=== PATIENT | female | born 1960 | race Caucasian/White ===

== ENCOUNTER 2019-11-02 15:44 | Emergency (ER) | payer OTHER, SELFPAY ==
--- NOTE | ~2019-11-02 | XR_ITS ---
EXAMINATION: XR chest 2V DATE: 11/02/2019 16:13 INDICATION: Chest pain TECHNIQUE: PA and lateral views of the chest are obtained. COMPARISON: 09/20/2007 FINDINGS: The lungs are free of acute opacities. There is no pleural effusion or pneumothorax. The ca rdiomediastinal silhouette is normal. There is moderate thoracic spondylosis. IMPRESSION: 1. No acute cardiopulmonary abnormality. Reviewed, dictated and finalized at location A.
[2019-11-02 15:48] VITALS: BP 169/67; PULSE 94; RESP 18; TEMP 36.3; O2SAT 99
[2019-11-02 15:52] VITALS: PULSE 92; O2SAT 98
--- NOTE | 2019-11-02 15:53 | ED.CHESTPAIN ---
HPI - Chest Pain General Chief Complaint: Chest Pain Stated Complaint: epigastric pain/back pain Time Seen by Provider: 11/02/19 15:51 Source: patient and RN notes reviewed Mode of arrival: ambulatory Limitations: no limitations History of Present Illness HPI narrative: Pt is a 59 y/o female presenting to the ED c/o CP. Pt reports she started experiencing epigastric CP radiating to back and rt sided chest after eating food yesterday afternoon. Pt states the pain is worsened with breathing and notes the pain becomes sharp with each breath. Pt also reports poor appetite, cough for 2 months that has recently alleviated, increased belching, ABD bloating, and chronic BLE swelling, but denies SOB. Pt states her pain was not worsened after eating breakfast and lunch earlier today. Pt states she is currently taking hydrochlorothiazide due to mild HTN, but denies any other pulmonary or cardiovascular Hx's. Pt states she took Motrin x4 and her husbands Omeprazole to no relief on her Sx's. Pertinent past history: other (HTN) Onset (ago): day(s) (1) Pain location: epigastric Pain radiation: back and other (Rt chest) Exacerbating factors: other (Breathing) Associated symptoms: leg swelling (Chronic BLE) and other (Poor appetite; cough; increased belching; ABD bloating) Related Data Home Medications Medication Instructions Recorded Confirmed hydrochlorothiazide 11/02/19 Allergies Allergy/AdvReac Type Severity Reaction Status Date / Time No Known Allergies Allergy Mild Verified 11/02/19 15:55 Review of Systems Review of Systems: All systems reviewed & are unremarkable except as noted in HPI and below Constitutional: Constitutional: Reports poor appetite Cardiovascular: Cardiovascular: Reports pedal edema (Chronic) Respiratory: Respiratory: Reports cough and Denies dyspnea Gastrointestinal: Gastrointestinal: Reports abdominal pain (Epigastric radiating to back and rt chest), Reports bloating and Reports other (Increased belching) PMFSH Past Medical History Medical History Arthritis GERD (gastroesophageal reflux disease) Hiatal hernia HTN (hypertension) IBS (irritable bowel syndrome) Mitral valve prolapse Seasonal allergies Surgical History Surgical History H/O dilation and curettage H/O tubal ligation History of History of cholecystectomy History of endometrial ablation History of tonsillectomy Social History Social History Smoking status: Unknown if ever smoked Gender identity (if verbalized by the patient): Female Exam Const: General: healthy appearing, no acute distress and alert Nutritional Appearance: well nourished HENMT: Mouth: Yes lip normal Eyes: Conjunctivae: conjunctivae normal Resp: Effort & Inspection: normal respiratory effort Auscultation: clear to auscultation bilaterally Cardio: Rate: regular rate Rhythm: regular rhythm GI: Inspection: non-distended GI Palp: Yes Soft to palpation and No Tenderness to palpation present (GI) Back/Spine/Pelvis: Other: Full ROM Skin: General skin exam: normal color Other: Warm; Dry Neuro: General: patient oriented x3 Speech: normal speech Extrem: General: full ROM and no pedal edema Psych: Mental Status: mental status grossly normal Affect: normal affect Course Vital Signs Vital signs: Vital Signs Temperature 36.3 C L 11/02/19 15:48 Pulse Rate 94 11/02/19 15:48 Respiratory Rate 18 11/02/19 15:48 Blood Pressure 169/67 H 11/02/19 15:48 Pulse Oximetry 99 11/02/19 15:48 Temperature 36.3 C L 11/02/19 15:48 Pulse Rate 87 11/02/19 17:40 Respiratory Rate 16 11/02/19 17:40 Blood Pressure 145/60 H 11/02/19 17:40 Pulse Oximetry 99 11/02/19 17:40 MDM - Chest Pain MDM Narrative Medical decision making narrative: Pain is atypical. Improved with GI cocktail. Troponin negativ
--- NOTE | 2019-11-02 15:54 | ECG_ITS ---
Measurements Intervals [place] Rate: 87 P: 43 [place]: 150 QRS: 33 QRSD: 94 T: 48 QT: 381 QTc: 460 Interpretive Statements SINUS RHYTHM LOW QRS VOLTAGE IN PRECORDIAL LEADS INCOMPLETE RIGHT BUNDLE BRANCH BLOCK BORDERLINE T WAVE ABNORMALITY- ANTERIOR LEADS BORDERLINE ECG Electronically Signed On 11-02-2019 20:07:21 CDT by Tad Fiore D.O.
[2019-11-02] MEDS: BELLADONNA ALK/PHENOB ELIX 10 ML, MAG HYDROX/ALUMINUM HYD/SIMETH 30 ML, LIDOCAINE HCL 2... PO (16:29)
[2019-11-02] MEDS: PANTOPRAZOLE SODIUM IV 40 MG VIAL IV PUSH (16:29)
[2019-11-02 16:37] LABS: Basophils Absolute Auto 0.1 K/mm3 (0.0-0.1); Basophils Percent Auto 0.4 % (0.2-1.2); Eosinophils Absolute Auto 0.2 K/mm3 (0-0.3); Hematocrit 44.8 % (37.0-47.0); Immature Granulocyte Absolute 0.09 K/mm3 (0.00-0.031); Immature Granulocyte Percent A 0.6 % (0-0.5); Lymphocytes Absolute Auto 2.95 K/mm3 (0.9-3.2); Lymphocytes Percent Auto 18.6 % (18.3-44.2); Mean Corpuscular HGB Conc 33.5 g/dl (32-36); Mean Corpuscular Hemoglobin 29.6 pg (26-34); Mean Corpuscular Volume 88.5 fl (80-100); Mean Platelet Volume 10.3 fl (7.4-10.4); Monocytes Percent Auto 6.1 % (2.6-8.5); Neutrophils Absolute Auto 11.7 K/mm3 (1.3-6.7); Neutrophils Percent Auto 73.3 % (45.5-73.1); Platelet Count Result 229 k/mm3 (150-375); Red Blood Count 5.06 M/mm3 (4.2-5.4); Red Cell Distribution Width 13.6 % (11.5-14.5); White Blood Count 15.9 K/mm3 (4.5-10.0)
[2019-11-02 16:56] LABS: Alanine Aminotransferase 29 U/L (4-35); Albumin Level 4.4 g/dL (3.5-5.1); Alkaline Phosphatase 91 U/L (38-126); Aspartate Amino Transferase 26 U/L (14-36); Bilirubin,Total 0.2 mg/dL (0.2-1.3); Blood Urea Nitrogen 13 mg/dL (7-17); Carbon Dioxide 30 mmol/L (22-30); Chloride 102 mmol/L (98-107); Estimated Glomerular Filt Rate > 60; Glucose 106 mg/dL (65-105); Potassium 3.7 mmol/L (3.4-5.0); Sodium 136 mmol/L (137-145)
[2019-11-02 17:08] LABS: Troponin I < 0.012 ng/mL (0.000-0.034)
[2019-11-02 17:40] VITALS: BP 145/60; PULSE 87; RESP 16; O2SAT 99
== END 2019-11-02 17:41 | disposition home or self-care (01) ==
PROVIDERS: Emergency Provider Emergency Medicine; PCP Internal Medicine
DX: R07.89 Other chest pain (principal); M19.90 Unspecified osteoarthritis, unspecified site; K21.9 Gastro-esophageal reflux disease without esophagitis; I10 Essential (primary) hypertension; K58.9 Irritable bowel syndrome, unspecified; I34.1 Nonrheumatic mitral (valve) prolapse
CPT/HCPCS: 36415; 71046; 80053; 84484; 85025; 93005; 96374; 99284; A9270; C9113

== ENCOUNTER 2020-08-18 19:51 | Inpatient (IN) | payer OTHER, SELFPAY ==
[2020-08-18] VITALS (13 sets, daily range): BP systolic 126–152; BP diastolic 52–70; PULSE 96–103; RESP 20–31; TEMP 36.9; O2SAT 89–96
--- NOTE | ~2020-08-18 | CT_ITS ---
EXAMINATION: CTA chest PE protocol EXAM DATE: 08/18/2020 22:22 INDICATION: Shortness of breath, elev d dimer. TECHNIQUE: Spiral CTA of the chest (pulmonary arteries) was performed with 100 cc Omnipaque 350 intr avenous contrast injection. Images were acquired during the pulmonary arterial phase. Coronal maxi mum intensity projection 3D-reconstructions were created by the technologist on dedicated workstation . Axial, coronal and sagittal reformatted images were reviewed. The dose-length product (DLP) for t his examination was 604.28 mGy-cm. The exposure was tailored according to patient size (auto mA exp osure control), and iterative reconstruction (ASIR) was used as additional dose reduction technique. 2008 FINDINGS: Pulmonary arteries are well opacified and without intraluminal filling defects. No thora cic aortic dissection. Patchy bilateral predominantly linear airspace disease, could be combination of infection and atelectasis. Subacute stage COVID pneumonia can have this appearance. There are no pleural or pericardial effusions. Tracheobronchial tree is patent. There is no mediastinal, brenda r or axillary lymphadenopathy. There is no pneumothorax. Heart normal in size. No evidence of c oronary arterial calcification. Upper abdomen is unremarkable. There is thoracic spondylosis witho ut osteoblastic or osteolytic lesions identified. IMPRESSION: Moderate amount of basilar airspace disease, appearance suggests subacute stage COVID pne umonia. No pulmonary emboli. Reviewed, dictated and finalized at location A. OGRAPH OPERATOR IMPRESSION: Moderate amount of basilar airspace disease, appearance suggests davis bacute stage COVID pneumonia. No pulmonary emboli.
--- NOTE | ~2020-08-18 | XR_ITS ---
EXAMINATION: XR chest 1V portable EXAM DATE: 08/18/2020 20:45 INDICATION: COVID 19 positive, shortness of breath, diarrhea, cough, fever and weakness. TECHNIQUE: Portable AP frontal chest x-ray was obtained. Comparison is made to prior examination from 11/02/2019. FINDINGS: Suspect small amount of ill-defined bilateral groundglass airspace disease. Could be develo ping infectious process. No pleural effusion or pneumothorax. Cardiomediastinal silhouette is normal. There are bony degenerative changes. IMPRESSION: Possible developing acute bilateral airspace disease. Reviewed, dictated and finalized at location A. O TIME SALESPERSON
--- NOTE | ~2020-08-18 | XR_ITS ---
XR chest 1V portable 08/21/2020 06:01 Indication: CovidPneumonia Procedure: AP portable chest Comparison: Comparison to multiple prior studies sequentially, with oldest reviewed study dated 05/14. Findings: Developing patchy bilateral airspace disease, compatible with pneumonia. Small left pleural effusion. No pneumothorax. Heart size normal for technique. No acute osseous abnormality. Impression: 1: Developing patchy bilateral airspace disease, compatible with pneumonia. Reviewed, dictated and finalized at location A. AID Impression: 1: Developing patchy bilateral airspace disease, compatible with pneumonia.
--- NOTE | 2020-08-18 20:18 | ED.FEVER ---
HPI - Fever General Chief Complaint: Fever <Edilberto Manzano MD - Last Filed: 08/18/20 23:04> Stated Complaint: COVID+08/12 FEVER,COUGH,SOB <Edilberto Manzano MD - Last Filed: 08/18/20 23:04> Time Seen by Provider: 08/18/20 20:06 <Edilberto Manzano MD - Last Filed: 08/18/20 23:04> Source: patient <Edilberto Manzano MD - Last Filed: 08/18/20 23:04> Mode of arrival: ambulatory <Edilberto Manzano MD - Last Filed: 08/18/20 23:04> Limitations: no limitations <Edilberto Manzano MD - Last Filed: 08/18/20 23:04> History of Present Illness HPI Narrative: Patient is a 58-year-old female complaining of shortness of breath, fever, body aches and diarrhea that started approximately 9 days ago. Patient states that she tested positive for Covid 1 week ago. Patient states that she continues to have the above symptoms. Patient denies any headache, chest pain, abdominal pain, nausea or vomiting. <Edilberto Manzano MD - Last Filed: 08/18/20 23:04> Related Data Home Medications: Home Medications Medication Instructions Recorded Confirmed hydrochlorothiazide 11/02/19 <Edilberto Manzano MD - Last Filed: 08/18/20 23:04> Allergies/Adverse Reactions: Allergies Allergy/AdvReac Type Severity Reaction Status Date / Time No Known Allergies Allergy Mild Verified 11/02/19 15:55 <Edilberto Manzano MD - Last Filed: 08/18/20 23:04> Review of Systems Review of Systems: All systems reviewed & are unremarkable except as noted in HPI and below <Edilberto Manzano MD - Last Filed: 08/18/20 23:04> Constitutional: Constitutional: Denies excessive sweating, Denies fatigue, Denies headache(s), Denies lethargy and Denies weight loss <Edilberto Manzano MD - Last Filed: 08/18/20 23:04> Eyes: Eyes: Denies blurry vision, Denies change in vision and Denies loss of vision <Edilberto Manzano MD - Last Filed: 08/18/20 23:04> ENT: Denies dizziness, Denies ear discharge, Denies headache(s), Denies lip swelling, Denies epistaxis, Denies nasal congestion, Denies neck pain, Denies throat swelling and Denies tongue swelling <Edilberto aMnzano MD - Last Filed: 08/18/20 23:04> Cardiovascular: Cardiovascular: Denies chest pain, Denies chest pain at rest, Denies chest pain with activity, Denies diaphoresis, Denies rapid heart rate, Denies edema, Denies irregular heart rhythm, Denies lightheadedness and Denies palpitations <Edilberto Manzano MD - Last Filed: 08/18/20 23:04> Respiratory: Respiratory: Denies chest congestion, Denies cough and Denies hemoptysis <Edilberto Manzano MD - Last Filed: 08/18/20 23:04> Gastrointestinal: Gastrointestinal: Denies abdominal pain, Denies melena, Denies hematochezia, Denies nausea, Denies vomiting and Denies hematemesis <Edilberto Manzano MD - Last Filed: 08/18/20 23:04> Musculoskeletal: Musculoskeletal: Denies abnormal gait, Denies deformity, Denies joint swelling, Denies limited range of motion, Denies neck pain and Denies numbness <Edilberto Manzano MD - Last Filed: 08/18/20 23:04> Neurologic: Denies Abnormal speech present, Denies abnormal gait, Denies confusion, Denies dizziness, Denies headache(s), Denies focal weakness, Denies loss of vision, Denies numbness, Denies Other visual disturbances, Denies Sensory deficit (Neuro) and Denies weakness <Edilberto Manzano MD - Last Filed: 08/18/20 23:04> Psychiatric: Psychiatric: Denies confusion, Denies depression, Denies auditory hallucinations, Denies homicidal ideation and Denies suicidal ideation <Edilberto Manzano MD - Last Filed: 08/18/20 23:04> Endocrine: Endocrine: Denies cold intolerance, Denies excessive sweating, Denies fatigue, Denies heat intolerance and Denies palpitations <Edilberto Manzano MD - Last Filed: 08/18/20 23:04> Hematologic/Lymphatic: Hematologic/Lymphatic: Denies easy bleeding and Denies easy bruising <Edilberto Manzano MD - Last Filed: 08/18/20 23:04> Allergic/Immunologic: Jace
[2020-08-18 21:01] LABS: Basophils Percent Auto 0.2 % (0.2-1.2); Hematocrit 42.2 % (37.0-47.0); Hemoglobin 14.3 g/dL (12.0-15.0); Immature Granulocyte Absolute 0.05 K/mm3 (0.00-0.031); Immature Granulocyte Percent A 0.9 % (0-0.5); Lymphocytes Absolute Auto 0.82 K/mm3 (0.9-3.2); Lymphocytes Percent Auto 14.8 % (18.3-44.2); Mean Corpuscular HGB Conc 33.9 g/dl (32-36); Mean Corpuscular Hemoglobin 29.2 pg (26-34); Mean Corpuscular Volume 86.3 fl (80-100); Mean Platelet Volume 10.4 fl (7.4-10.4); Monocytes Absolute Auto 0.4 K/mm3 (0.1-0.6); Monocytes Percent Auto 6.5 % (2.6-8.5); Neutrophils Absolute Auto 4.3 K/mm3 (1.3-6.7); Neutrophils Percent Auto 77.6 % (45.5-73.1); Platelet Count Result 193 k/mm3 (150-375); Red Blood Count 4.89 M/mm3 (4.2-5.4); Red Cell Distribution Width 13.8 % (11.5-14.5); White Blood Count 5.5 K/mm3 (4.5-10.0)
[2020-08-18 21:13] LABS: Alanine Aminotransferase 40 U/L (4-35); Albumin Level 4.1 g/dL (3.5-5.1); Alkaline Phosphatase 88 U/L (38-126); Anion Gap 11 mmol/L (8-16); Aspartate Amino Transferase 49 U/L (14-36); Bilirubin,Total 0.5 mg/dL (0.2-1.3); Blood Urea Nitrogen 21 mg/dL (7-17); Calcium 9.5 mg/dL (8.4-10.2); Carbon Dioxide 26 mmol/L (22-30); Chloride 98 mmol/L (98-107); Estimated CRCL calculation 48 ml/min; Estimated Glomerular Filt Rate 46; Glucose 140 mg/dL (65-105); Potassium 3.7 mmol/L (3.4-5.0); Sodium 135 mmol/L (137-145)
[2020-08-18 21:14] LABS: INR 0.9; Lactic Acid Reflex 0.9 mmol/L (0.7-2.1); Prothrombin Time 12.6 Seconds (11.1-14.7)
[2020-08-18 21:15] LABS: Partial Thromboplastin Time 31.1 SECONDS (22.3-36.8)
[2020-08-18 21:17] LABS: D Dimer 0.98 ug/mL (<0.48)
[2020-08-18 21:25] LABS: Troponin I < 0.012 ng/mL (0.000-0.034)
[2020-08-18 22:17] LABS: Alveolar/Arterial O2 Gradient 57.4 mmHg; Base Excess ABG -2.3 mEq/l (+/-2.0); Carboxyhemoglobin 0.6 % THb (0-2.0); Device ROOM AIR; Fractional Inspired Oxygen 21 %; HCO3 ABG 19.6 mEq/l (22.0-26.0); Methemoglobin ABG 0.3 %THb (0-1.5); Modified Allen's Test Pass; Oxygen Content ABG 18.6 %vol (16.0-22.0); Oxygen Saturation ABG 93.1 % (95.0-100.0); Oxyhemoglobin 91.4 % THb (90.0-100.0); PCO2 ABG 26.9 mmHg (35.0-45.0); PO2 ABG 60.1 mmHg (80.0-100.0); PO2 FiO2 Ratio Arterial Blood 2.86 %; Reduced Hemoglobin 7.7 %THb (0-5.0); Site Drawn LEFT RADIAL; Total Hemoglobin 14.5 g/dL (12.0-18.0)
[2020-08-19] VITALS (14 sets, daily range): BP systolic 111–143; BP diastolic 46–68; PULSE 67–101; RESP 18–24; TEMP 35.5–36.7; O2SAT 92–96; BMI 35.2; BMI 35.7
--- NOTE | 2020-08-19 00:28 | PM.IMHP ---
H&P: HPI History of Present Illness Date/Time: 08/19/20 00:28 Chief Complaint: shortness of breath Narrative: This is a 60 year old female with known history of HTN, GERD, and IBS who presented to the hospital [facility] with a complaint of shortness of breath, intermittent fevers,nonproductive cough, generalized weakness and diarrhea for the past 9 days. She tested positive for COVID-19 one week ago. She admits to me that she recently went to a family and no one was wearing masks. Subsequently, everyone in her family tested positive for COVID-19. [facility] she decided to come to the hospital as her shortness of breath wasn't improving. The patient denies any chest pain, palpitations, abdominal pain, nausea, vomiting, dysuria, hematuria, or rectal bleeding. She was evaluated in the ER [facility] and found to be in respiratory failure with hypoxemia on ABG. She was also found to be in mild acute renal failure. Chest CTA demonstrated a moderate amount of basilar airspace disease, appearance suggests subacute stage COVID pneumonia and no pulmonary emboli. She has been treated with supplemental oxygen and dexamethasone. No other complaints. Review of Systems Review of Systems: All systems reviewed & are unremarkable except as noted in HPI and below PMFSH Past Medical History Medical History (Updated 08/19/20 @ 01:06 by Nuno Bansal MD) Arthritis GERD (gastroesophageal reflux disease) Hiatal hernia HTN (hypertension) IBS (irritable bowel syndrome) Mitral valve prolapse Seasonal allergies Surgical History Surgical History H/O dilation and curettage H/O tubal ligation History of History of cholecystectomy History of endometrial ablation History of tonsillectomy Social History Social History Smoking status: Unknown if ever smoked Gender identity (if verbalized by the patient): Female Meds Home Medications and Allergies Home Medications Medication Instructions Recorded Confirmed Type hydrochlorothiazide 11/02/19 History Allergies Allergy/AdvReac Type Severity Reaction Status Date / Time No Known Allergies Allergy Mild Verified 11/02/19 15:55 Vital Signs Vital Signs - 24 hr 08/18/20 20:16 08/18/20 20:20 08/18/20 20:31 Temperature 36.9 C Pulse Rate 100 102 H Respiratory Rate 26 H 28 H 30 H Blood Pressure 152/61 H 146/62 H Pulse Oximetry 91 90 08/18/20 21:01 08/18/20 21:31 08/18/20 22:01 Temperature Pulse Rate 99 97 101 H Respiratory Rate 28 H 27 H 26 H Blood Pressure 138/63 145/68 H 126/52 L Pulse Oximetry 91 90 92 08/18/20 22:28 08/18/20 22:29 08/18/20 22:31 Temperature Pulse Rate 102 H 100 103 H Respiratory Rate 31 H 23 H 25 H Blood Pressure 139/63 127/65 Pulse Oximetry 91 93 92 08/18/20 22:52 08/18/20 22:58 08/18/20 23:00 Temperature Pulse Rate 101 H 100 Respiratory Rate 20 23 H Blood Pressure 127/65 139/70 Pulse Oximetry 89 L 95 96 08/18/20 23:48 Temperature Pulse Rate 96 Respiratory Rate 27 H Blood Pressure 139/70 Pulse Oximetry 95 Exam Const: General: cooperative and ill appearing acutely Nutritional Appearance: obese Orientation/consciousness: patient oriented x3 HENMT: Head: normal to inspection General nose exam: Normal external nose present Face and sinus: normal facial exam Mouth: Yes Normal oral and palatal mucosa present Eyes: General: appearance normal, both eyes and all related structures Pupils: Equal, round and reactive pupils present EOM: EOMs intact bilaterally Neck: Neck: supple and no JVD Thyroid: thyroid normal Lymphatic: lymphadenopathy not noted Resp: Effort & Inspection: tachypneic Auscultation: rales (mid and lower lung zones++ ) bilateral Cardio: Rate: tachycardic Rhythm: regular rhythm Heart sounds: no murmurs GI: Inspection: normal to inspection Auscultation: dre
[2020-08-19] MEDS: guaiFENesin/DEXTROMETHORPHAN 10 ML UDC 5 ML PO ×3 (01:02→15:13)
--- NOTE | 2020-08-19 01:13 | ADMGEN ---
This patient, Adriana Huntley, was admitted to 3 [facility] Surg Room 310-01. Patient/family oriented to hospital policies and general routines including ID bracelet, bed and alarms, visiting hours, pain management, procedures, bathroom and other care routines, personal items, smoking policy, room service/diet, and visiting hours. Information on how to activate the Rapid Response Team has been discussed. Patient/Family are encouraged to report perceived risks to care and to ask questions if they do not understand what they are told or what they should do.
[2020-08-19] MEDS: SODIUM CHLORIDE 0.9% IV 1,000 ML 75 ML IV CONT ×2 (01:20→15:14)
[2020-08-19] MEDS: REMDESIVIR 200 MG/NS 250 ML 200 MG/250 ML BAG 250 MG IVPB (01:23)
[2020-08-19] MEDS: ACETAMINOPHEN 325 MG TABLET 650 MG PO ×3 (01:53→21:31)
[2020-08-19] MEDS: ALBUTEROL SULFATE (*SP) AEROSOL 1 PUFF 2 PUFF INHALATION ×3 (02:09→15:32)
[2020-08-19 06:47] LABS: Basophils Percent Auto 0.3 % (0.2-1.2); Hematocrit 39.4 % (37.0-47.0); Hemoglobin 13.2 g/dL (12.0-15.0); Immature Granulocyte Absolute 0.05 K/mm3 (0.00-0.031); Immature Granulocyte Percent A 1.3 % (0-0.5); Lymphocytes Absolute Auto 0.59 K/mm3 (0.9-3.2); Lymphocytes Percent Auto 15.4 % (18.3-44.2); Mean Corpuscular HGB Conc 33.5 g/dl (32-36); Mean Corpuscular Hemoglobin 28.8 pg (26-34); Monocytes Absolute Auto 0.2 K/mm3 (0.1-0.6); Monocytes Percent Auto 3.9 % (2.6-8.5); Neutrophils Percent Auto 79.1 % (45.5-73.1); Platelet Count Result 213 k/mm3 (150-375); Red Blood Count 4.58 M/mm3 (4.2-5.4); Red Cell Distribution Width 13.8 % (11.5-14.5); White Blood Count 3.8 K/mm3 (4.5-10.0)
[2020-08-19 06:57] LABS: Anion Gap 11 mmol/L (8-16); Blood Urea Nitrogen 20 mg/dL (7-17); Calcium 9.3 mg/dL (8.4-10.2); Carbon Dioxide 25 mmol/L (22-30); Chloride 100 mmol/L (98-107); Estimated CRCL calculation 57 ml/min; Estimated Glomerular Filt Rate 56; Glucose 220 mg/dL (65-105); Sodium 136 mmol/L (137-145)
[2020-08-19 07:30] LABS: Alanine Aminotransferase 33 U/L (4-35)
[2020-08-19] MEDS: CHOLECALCIFEROL 1,000 UNITS TABLET 5000 UNITS PO (10:00)
[2020-08-19] MEDS: ASCORBIC ACID 500 MG TABLET 1000 MG PO (10:00)
[2020-08-19] MEDS: DEXAMETHASONE SOD PHOS INJ 4 MG/ML VIAL 6 MG IV PUSH (10:00)
[2020-08-19] MEDS: ENOXAPARIN 40 MG/0.4 ML SYRINGE SUB-Q (10:00)
[2020-08-19] MEDS: CYANOCOBALAMIN 1,000 MCG TABLET 1000 MCG PO (10:01)
[2020-08-19] MEDS: ZINC SULFATE 220 MG CAPSULE PO (10:01)
--- NOTE | 2020-08-19 19:34 | PM.IMPN ---
Progress Note: A&P Assessment and Plan (1) Acute hypoxemic respiratory failure: Code(s): J96.01 - Acute respiratory failure with hypoxia Status: Acute Assessment and Plan: Admit to Med-surg, continuous pulse oximetry, Continue supplemental oxygen. Continue treatment for COVID-19 pneumonia. RT assess and treat. Still very fatigued and weakened by COVID. Started on Lovenox daily, Remdesvimir, Nebulizer txs., Dexamethasone, , and serial lab checks of LDH/CRP/Ferritin/CBC. Ordered Coronet for pulmonary tiolet, as she refused IS. Rehydration with IVFs. Weaned from 10 L HF NC to 4 L NC today. Instructed nursing staff to stop wean of O2 for today, as that is a significant drop of O2 supply and improvement. Ordered ABG to confirm patient toerating that O2 drop well. Instructed her to lay on her sides or prone; and to stay active. Refused BiPap overnight. (2) Pneumonia due to COVID-19 virus: Code(s): U07.1 - COVID-19; J12.82 - Pneumonia due to coronavirus disease 2018 Status: Acute Assessment and Plan: Continue droplet isolation. Continue supplemental oxygen, antitussives prn. bronchodilators, Dexamethasone IV daily, Remdesivir. Continue supportive care. May transfer out of IMU, as ABG is improved and stable on 4 L O2 NC. (3) Acute renal failure: Qualifiers: Acute renal failure type: unspecified Qualified Code(s): N17.9 - Acute kidney failure, unspecified Code(s): N17.9 - Acute kidney failure, unspecified Status: Acute Assessment and Plan: light IV fluid challenge. Monitor renal function, avoid nephrotoxic agents, renally dose medications. Creatinine 0.5 now, LFTs Wnl (4) Transaminitis: Code(s): R74.01 - Elevation of levels of liver transaminase levels Status: Acute Assessment and Plan: Likely secondary to acute COVID-19 infection. Monitor LFTs. currently WNL. (5) GERD (gastroesophageal reflux disease): Qualifiers: Esophagitis presence: esophagitis presence not specified Qualified Code(s): K21.9 - Gastro-esophageal reflux disease without esophagitis Code(s): K21.9 - Gastro-esophageal reflux disease without esophagitis Status: Chronic Assessment and Plan: Continue PPI therapy. (6) HTN (hypertension): Qualifiers: Hypertension type: unspecified Qualified Code(s): I10 - Essential (primary) hypertension Code(s): I10 - Essential (primary) hypertension Status: Chronic Assessment and Plan: Monitor blood pressure. no concerns at this time HR 84, SBP 115/67 resume HCTZ when renal function is improved. Additional Plan I suspect the patient will likely need at least 2 nights of inpatient medical therapy for her acute respiratory failure and COVID pneumonia. Date of service was August 19, 2020 at approximately 12:15 a.m. Subjective Date/time seen: 08/19/20 19:34 She is feeling slightly better today. Still very fatigued and weakened by COVID. Started on Lovenox daily, Remdesvimir, Nebulizer txs., Dexamethasone, , and serial lab checks of LDH/CRP/Ferritin/CBC. Ordered Coronet for pulmonary tiolet, as she refused IS. Rehydration with IVFs. Weaned from 10 L HF NC to 4 L NC today. Instructed nursing staff to stop wean of O2 for today, as that is a significant drop of O2 supply and improvement. Ordered ABG to confirm patient toerating that O2 drop well. Instructed her to lay on her sides or prone; and to stay active. Refused BiPap overnight. Review of Systems Review of Systems: All systems reviewed & are unremarkable except as noted in HPI and below Constitutional: Constitutional: Reports daytime sleepiness, Denies excessive sweating, Denies fatigue, Denies headache(s), Denies lethargy, Reports malaise, Denies weakness and Denies weight loss Eyes: Eyes: Denies blurry vision, Denies change in vision and Denies loss of vision ENT: Denies dizziness, Denies ear discharge, Denies headache(s), Den
[2020-08-19] MEDS: IPRATROPIUM BR 0.02% INH SOLN 0.5 MG/2.5 ML VIAL INHALATION (20:25)
[2020-08-19] MEDS: ALBUTEROL SULFATE NEB 2.5 MG/0.5 ML INH INHALATION (20:25)
[2020-08-19] MEDS: guaiFENesin 12 HR 600 MG TABCR PO (21:20)
[2020-08-19] MEDS: REMDESIVIR 100 MG/NS 250 ML 100 MG/250 ML BAG 250 MG IVPB (21:20)
[2020-08-19] MEDS: HYDROcodone/acetaminophen (*CRX) 5-325 MG TABLET 1 TAB PO (23:26)
[2020-08-20] VITALS (15 sets, daily range): BP systolic 106–146; BP diastolic 50–64; PULSE 60–93; RESP 18–22; TEMP 36.4–36.6; O2SAT 92–100
[2020-08-20] MEDS: ALBUTEROL SULFATE NEB 2.5 MG/0.5 ML INH INHALATION ×4 (01:57→20:53)
[2020-08-20] MEDS: IPRATROPIUM BR 0.02% INH SOLN 0.5 MG/2.5 ML VIAL INHALATION ×4 (01:58→20:53)
[2020-08-20] MEDS: HYDROcodone/acetaminophen (*CRX) 5-325 MG TABLET 1 TAB PO ×2 (03:50→21:39)
[2020-08-20 06:15] LABS: Basophils Percent Auto 0.1 % (0.2-1.2); Hematocrit 37.4 % (37.0-47.0); Hemoglobin 12.4 g/dL (12.0-15.0); Immature Granulocyte Percent A 1.1 % (0-0.5); Lymphocytes Absolute Auto 1.05 K/mm3 (0.9-3.2); Lymphocytes Percent Auto 11.5 % (18.3-44.2); Mean Corpuscular HGB Conc 33.2 g/dl (32-36); Mean Corpuscular Volume 87.4 fl (80-100); Mean Platelet Volume 10.1 fl (7.4-10.4); Monocytes Absolute Auto 0.5 K/mm3 (0.1-0.6); Monocytes Percent Auto 5.9 % (2.6-8.5); Neutrophils Absolute Auto 7.5 K/mm3 (1.3-6.7); Neutrophils Percent Auto 81.4 % (45.5-73.1); Platelet Count Result 222 k/mm3 (150-375); Red Blood Count 4.28 M/mm3 (4.2-5.4); Red Cell Distribution Width 13.9 % (11.5-14.5); White Blood Count 9.2 K/mm3 (4.5-10.0)
[2020-08-20] MEDS: SODIUM CHLORIDE 0.9% IV 1,000 ML 75 ML IV CONT ×2 (06:21→19:55)
[2020-08-20 08:16] LABS: Alanine Aminotransferase 27 U/L (4-35); Albumin Level 3.3 g/dL (3.5-5.1); Alkaline Phosphatase 59 U/L (38-126); Anion Gap 8 mmol/L (8-16); Aspartate Amino Transferase 39 U/L (14-36); Bilirubin,Total 0.3 mg/dL (0.2-1.3); Blood Urea Nitrogen 19 mg/dL (7-17); Calcium 8.7 mg/dL (8.4-10.2); Carbon Dioxide 23 mmol/L (22-30); Chloride 107 mmol/L (98-107); Estimated CRCL calculation 92 ml/min; Estimated Glomerular Filt Rate > 60; Glucose 157 mg/dL (65-105); Lactate Dehydrogenase 846 U/L (313-618); Potassium 4.1 mmol/L (3.4-5.0); Sodium 138 mmol/L (137-145)
[2020-08-20 08:22] LABS: CRP 6.1 mg/dL (<1.0)
[2020-08-20] MEDS: CHOLECALCIFEROL 1,000 UNITS TABLET 5000 UNITS PO (08:37)
[2020-08-20] MEDS: ASCORBIC ACID 500 MG TABLET 1000 MG PO (08:38)
[2020-08-20] MEDS: guaiFENesin 12 HR 600 MG TABCR PO ×2 (08:38→19:55)
[2020-08-20] MEDS: ZINC SULFATE 220 MG CAPSULE PO (08:38)
[2020-08-20] MEDS: DEXAMETHASONE SOD PHOS INJ 4 MG/ML VIAL 6 MG IV PUSH (08:39)
[2020-08-20] MEDS: CYANOCOBALAMIN 1,000 MCG TABLET 1000 MCG PO (08:39)
[2020-08-20] MEDS: ENOXAPARIN 40 MG/0.4 ML SYRINGE SUB-Q (08:39)
--- NOTE | 2020-08-20 14:19 | PM.IMPN ---
Progress Note: A&P Assessment and Plan (1) Acute hypoxemic respiratory failure: Code(s): J96.01 - Acute respiratory failure with hypoxia Status: Acute Assessment and Plan: Admit to Med-surg, continuous pulse oximetry, Continue supplemental oxygen. Continue treatment for COVID-19 pneumonia. RT assess and treat. Still very fatigued and weakened by COVID. Started on Lovenox daily, Remdesvimir, Nebulizer txs., Dexamethasone, , and serial lab Ordered Coronet Rehydration with IVFs. pt is down to 1 liter of oxygen hopeful dc in 1-2 days time (2) Pneumonia due to COVID-19 virus: Code(s): U07.1 - COVID-19; J12.82 - Pneumonia due to coronavirus disease 2019 Status: Acute Assessment and Plan: Continue droplet isolation. Continue supplemental oxygen, antitussives prn. bronchodilators, Dexamethasone IV daily, Remdesivir. order cxr for tomorrow. (3) Acute renal failure: Qualifiers: Acute renal failure type: unspecified Qualified Code(s): N17.9 - Acute kidney failure, unspecified Code(s): N17.9 - Acute kidney failure, unspecified Status: Acute Assessment and Plan: light IV fluid challenge. (4) Transaminitis: Code(s): R74.01 - Elevation of levels of liver transaminase levels Status: Acute Assessment and Plan: Likely secondary to acute COVID-19 infection. (5) GERD (gastroesophageal reflux disease): Qualifiers: Esophagitis presence: esophagitis presence not specified Qualified Code(s): K21.9 - Gastro-esophageal reflux disease without esophagitis Code(s): K21.9 - Gastro-esophageal reflux disease without esophagitis Status: Chronic Assessment and Plan: Continue PPI therapy. (6) HTN (hypertension): Qualifiers: Hypertension type: unspecified Qualified Code(s): I10 - Essential (primary) hypertension Code(s): I10 - Essential (primary) hypertension Status: Chronic Assessment and Plan: Monitor blood pressure. Subjective Date/time seen: 08/20/20 14:19 Interval history: She is feeling slightly better today. Still very fatigued and weakened by COVID. Started on Lovenox daily, Remdesvimir, Nebulizer txs., Dexamethasone. Pt is down to 1 liters feels better since admission. 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 Review of Systems Review of Systems: All systems reviewed & are unremarkable except as noted in HPI and below Exam Const: General: cooperative and healthy appearing; No in distress Nutritional Appearance: overweight Orientation/consciousness: oriented to person HENMT: Head: normal to inspection Resp: Effort & Inspection: no respiratory distress Auscultation: no rhonchi and no wheezes Cardio: Rate: regular rate Rhythm: regular rhythm GI: Inspection: normal to inspection GI Palp: No abdominal tenderness, No Guarding due to palpation present (GI) and No Hepatomegaly present Auscultation: normal bowel sounds Neuro: General: oriented to person Objective Data Vital Signs Vital Signs: Vital Signs - 24 hr 08/19/20 16:00 08/19/20 20:00 08/19/20 20:26 Temperature 36.6 C 36.7 C Pulse Rate 101 H 91 70 Respiratory Rate 20 18 20 Blood Pressure 130/57 L 142/52 H Pulse Oximetry 92 93 08/19/20 20:27 08/19/20 23:57 08/20/20 00:00 Temperature 36.6 C Pulse Rate 88 73 63 Respiratory Rate 20 18 Blood Pressure 111/46 L Pulse Oximetry 93 93 08/20/20 01:56 08/20/20 04:00 08/20/20 08:00 Temperature 36.5 C 36.4 C Pulse Rate 74 60 93 Respiratory Rate 20 18 18 Blood Pressure 106/53 L 129/54 L Pulse Oximetry 94 94 08/20/20 08:11 08/20/20 08:30 08/20/20 08:31 Temperature Pulse Rate 73 80 Respiratory Rate 18 18 Blood Pressure Pulse Oximetry 93 93 08/20/20 12:00 Temperature 36.4 C Pulse Rate 78 Respiratory Rate 18 Blood Pressure 127/56 L Pulse Oximetry 94 Intake/Output Intake/Output: Intake & Output 0
[2020-08-20] MEDS: REMDESIVIR 100 MG/NS 250 ML 100 MG/250 ML BAG 250 MG IVPB (21:38)
[2020-08-21] VITALS (9 sets, daily range): BP systolic 117–149; BP diastolic 53–69; PULSE 73–91; RESP 16–20; TEMP 36.1–36.9; O2SAT 93–97
[2020-08-21 06:20] LABS: Basophils Percent Auto 0.2 % (0.2-1.2); Hematocrit 37.9 % (37.0-47.0); Hemoglobin 12.4 g/dL (12.0-15.0); Immature Granulocyte Absolute 0.09 K/mm3 (0.00-0.031); Immature Granulocyte Percent A 0.9 % (0-0.5); Lymphocytes Absolute Auto 1.69 K/mm3 (0.9-3.2); Lymphocytes Percent Auto 16.9 % (18.3-44.2); Mean Corpuscular HGB Conc 32.7 g/dl (32-36); Mean Corpuscular Hemoglobin 28.9 pg (26-34); Mean Corpuscular Volume 88.3 fl (80-100); Mean Platelet Volume 9.8 fl (7.4-10.4); Monocytes Absolute Auto 0.6 K/mm3 (0.1-0.6); Monocytes Percent Auto 6.4 % (2.6-8.5); Neutrophils Absolute Auto 7.6 K/mm3 (1.3-6.7); Neutrophils Percent Auto 75.6 % (45.5-73.1); Platelet Count Result 244 k/mm3 (150-375); Red Blood Count 4.29 M/mm3 (4.2-5.4); Red Cell Distribution Width 14.3 % (11.5-14.5)
[2020-08-21 06:34] LABS: Alanine Aminotransferase 25 U/L (4-35); Albumin Level 3.2 g/dL (3.5-5.1); Alkaline Phosphatase 56 U/L (38-126); Anion Gap 8 mmol/L (8-16); Aspartate Amino Transferase 35 U/L (14-36); Bilirubin,Total 0.4 mg/dL (0.2-1.3); Blood Urea Nitrogen 17 mg/dL (7-17); Calcium 8.7 mg/dL (8.4-10.2); Carbon Dioxide 23 mmol/L (22-30); Chloride 109 mmol/L (98-107); Estimated CRCL calculation 92 ml/min; Estimated Glomerular Filt Rate > 60; Glucose 130 mg/dL (65-105); Sodium 140 mmol/L (137-145)
[2020-08-21] MEDS: ASCORBIC ACID 500 MG TABLET 1000 MG PO (08:34)
[2020-08-21] MEDS: ENOXAPARIN 40 MG/0.4 ML SYRINGE SUB-Q (08:34)
[2020-08-21] MEDS: CYANOCOBALAMIN 1,000 MCG TABLET 1000 MCG PO (08:35)
[2020-08-21] MEDS: guaiFENesin 12 HR 600 MG TABCR PO ×2 (08:35→21:37)
[2020-08-21] MEDS: ZINC SULFATE 220 MG CAPSULE PO (08:35)
[2020-08-21] MEDS: CHOLECALCIFEROL 1,000 UNITS TABLET 5000 UNITS PO (08:35)
[2020-08-21] MEDS: ALBUTEROL SULFATE (*SP) AEROSOL 1 PUFF 2 PUFF INHALATION ×2 (08:57→15:46)
[2020-08-21] MEDS: IPRATROPIUM BR 0.02% INH SOLN 0.5 MG/2.5 ML VIAL INHALATION (08:58)
[2020-08-21] MEDS: DEXAMETHASONE SOD PHOS INJ 4 MG/ML VIAL 6 MG IV PUSH (10:26)
--- NOTE | 2020-08-21 13:42 | PM.IMPN ---
Progress Note: A&P Assessment and Plan (1) Acute hypoxemic respiratory failure: Code(s): J96.01 - Acute respiratory failure with hypoxia Status: Acute Assessment and Plan: Lovenox daily, Remdesvimir, albuterol Dexamethasone, , and serial lab pt is down to 1-2 liter of oxygen Plan to complete Remdisivir and possibly go home 08/23. (2) Pneumonia due to COVID-19 virus: Code(s): U07.1 - COVID-19; J12.82 - Pneumonia due to coronavirus disease 2019 Status: Acute Assessment and Plan: Continue droplet isolation. Continue supplemental oxygen, antitussives prn. bronchodilators, Dexamethasone IV daily, Remdesivir. CXR with suggestion of early bilateral infiltrates (3) Acute renal failure: Qualifiers: Acute renal failure type: unspecified Qualified Code(s): N17.9 - Acute kidney failure, unspecified Code(s): N17.9 - Acute kidney failure, unspecified Status: Acute Assessment and Plan: Resolved after hydration (4) Transaminitis: Code(s): R74.01 - Elevation of levels of liver transaminase levels Status: Acute Assessment and Plan: Likely secondary to acute COVID-19 infection. F/u lab (5) GERD (gastroesophageal reflux disease): Qualifiers: Esophagitis presence: esophagitis presence not specified Qualified Code(s): K21.9 - Gastro-esophageal reflux disease without esophagitis Code(s): K21.9 - Gastro-esophageal reflux disease without esophagitis Status: Chronic Assessment and Plan: Continue PPI therapy. (6) HTN (hypertension): Qualifiers: Hypertension type: unspecified Qualified Code(s): I10 - Essential (primary) hypertension Code(s): I10 - Essential (primary) hypertension Status: Chronic Assessment and Plan: Monitor blood pressure. Subjective Date/time seen: 08/21/20 13:42 Interval history: Tired. Dry cough. ANGELO. Some foods, such as potatoes, taste bitter. No other c/o. Review of Systems Review of Systems: All systems reviewed & are unremarkable except as noted in HPI and below Exam Narrative: Exam Narrative: HEENT: EOMI, PERRL, sclerae nonicteric, pharyngeal mucosa pink and intact NECK: No JVD CHEST: Slightly coarse BS at bases. Normal effort. HEART: NL S1/S2, regular, no murmur ABDOMEN: BS+, soft, nontender, no mass, no bruits EXTREMITIES: No cyanosis, edema, or clubbing NEUROLOGIC: CN intact and symmetric to inspection. MUSCULOSKELETAL: Tone and strength symmetric. PSYCH: Alert. Oriented to person, place, and time. Objective Data Vital Signs Vital Signs: Vital Signs - 24 hr 08/20/20 15:39 08/20/20 15:47 08/20/20 16:00 Temperature 97.9 F Pulse Rate 84 88 93 Respiratory Rate 18 18 22 H Blood Pressure 126/50 L Pulse Oximetry 94 08/20/20 20:00 08/20/20 20:58 08/20/20 20:59 Temperature 98 F Pulse Rate 84 88 88 Respiratory Rate 18 20 Blood Pressure 146/64 H Pulse Oximetry 100 95 08/20/20 21:07 08/21/20 00:00 08/21/20 04:15 Temperature 98.4 F 97 F L Pulse Rate 88 79 73 Respiratory Rate 20 16 18 Blood Pressure 117/53 L 122/69 Pulse Oximetry 97 96 08/21/20 06:48 08/21/20 08:00 08/21/20 08:56 Temperature 97.9 F Pulse Rate 90 Respiratory Rate 18 Blood Pressure 126/65 Pulse Oximetry 97 95 93 Intake/Output Intake/Output: Intake & Output 08/18/20 08/19/20 08/20/20 08/21/20 23:59 23:59 23:59 23:59 Intake Total 2810 4790 350 Output Total 1000 1800 650 Balance 1810 2990 -300 Meds/Results Medications: Active Medications Generic Name Dose Route Start Last Admin Trade Name Brandin PRN Reason Stop Dose Admin Acetaminophen 650 mg 08/19/20 00:24 08/19/20 21:31 Acetaminophen 325 Mg Tablet PO 650 mg Q4H PRN Administration Mild Pain (1-3) or Fever Hydrocodone Bitart/Acetaminophen 1 tab 08/19/20 00:24 08/20/20 21:39 Hydrocodone/Acetaminophen (*Crx) 5-325 Mg Tablet PO 1 tab Q4H TN
[2020-08-21] MEDS: HYDROcodone/acetaminophen (*CRX) 5-325 MG TABLET 1 TAB PO (21:37)
[2020-08-21] MEDS: REMDESIVIR 100 MG/NS 250 ML 100 MG/250 ML BAG 250 MG IVPB (21:38)
[2020-08-21] MEDS: SODIUM CHLORIDE 0.9% IV 1,000 ML 75 ML IV CONT (21:39)
[2020-08-22] VITALS: BP 117/42; PULSE 74; RESP 20; TEMP 37.2; O2SAT 95
[2020-08-22] MEDS: SODIUM CHLORIDE 0.9% IV 1,000 ML 75 ML IV CONT (03:30)
[2020-08-22 04:00] VITALS: BP 121/76; PULSE 67; RESP 20; TEMP 36.6; O2SAT 99
[2020-08-22 06:44] LABS: Hematocrit 36.9 % (37.0-47.0); Hemoglobin 12.3 g/dL (12.0-15.0); Mean Corpuscular HGB Conc 33.3 g/dl (32-36); Mean Corpuscular Hemoglobin 28.7 pg (26-34); Mean Platelet Volume 11.1 fl (7.4-10.4); Platelet Count Result 215 k/mm3 (150-375); Red Blood Count 4.29 M/mm3 (4.2-5.4); Red Cell Distribution Width 13.9 % (11.5-14.5); White Blood Count 7.9 K/mm3 (4.5-10.0)
[2020-08-22 07:27] LABS: Alanine Aminotransferase 33 U/L (4-35); Alkaline Phosphatase 63 U/L (38-126); Anion Gap 5 mmol/L (8-16); Aspartate Amino Transferase 37 U/L (14-36); Bilirubin,Total 0.4 mg/dL (0.2-1.3); Blood Urea Nitrogen 13 mg/dL (7-17); CRP 3.3 mg/dL (<1.0); Calcium 8.5 mg/dL (8.4-10.2); Carbon Dioxide 27 mmol/L (22-30); Chloride 107 mmol/L (98-107); Estimated CRCL calculation 80 ml/min; Estimated Glomerular Filt Rate > 60; Glucose 125 mg/dL (65-105); Lactate Dehydrogenase 695 U/L (313-618); Potassium 4.3 mmol/L (3.4-5.0); Sodium 139 mmol/L (137-145)
[2020-08-22 07:46] LABS: Lymphocytes Absolute Manual 1.26 K/mm3 (1.1-4.5); Monocytes Absolute Manual 0.63 K/mm3 (0.1-0.90); Monocytes Percent Manual 8 % (3-9); Neutrophils Percent Manual 76 % (46-73); Platelet Estimate Adequate (Adequate); Total Cells Counted 100
[2020-08-22 07:48] LABS: Crenated RBC 1+ (NORMAL)
[2020-08-22 08:00] VITALS: BP 130/64; PULSE 81; RESP 18; TEMP 36; O2SAT 95
[2020-08-22] MEDS: DEXAMETHASONE SOD PHOS INJ 4 MG/ML VIAL 6 MG IV PUSH (08:30)
[2020-08-22] MEDS: guaiFENesin 12 HR 600 MG TABCR PO (08:31)
[2020-08-22] MEDS: ZINC SULFATE 220 MG CAPSULE PO (08:31)
[2020-08-22] MEDS: CHOLECALCIFEROL 1,000 UNITS TABLET 5000 UNITS PO (08:31)
[2020-08-22] MEDS: CYANOCOBALAMIN 1,000 MCG TABLET 1000 MCG PO (08:31)
[2020-08-22] MEDS: ENOXAPARIN 40 MG/0.4 ML SYRINGE SUB-Q (08:32)
[2020-08-22 12:00] VITALS: BP 146/60; PULSE 73; RESP 18; TEMP 36.6; O2SAT 95
--- NOTE | 2020-08-22 14:53 | PM.DS ---
DS: Admitting Diagnosis Admitting Diagnosis Admitting Diagnosis: COVID-19 pneumonia DS: Discharge Diagnosis Discharge Diagnosis (1) Acute hypoxemic respiratory failure: Code(s): J96.01 - Acute respiratory failure with hypoxia Status: Acute Assessment and Plan: Remdesvimir completed 08/22 PM, Dexamethasone 6mg daily for 5 more days On R/a. Home this PM. (2) Pneumonia due to COVID-19 virus: Code(s): U07.1 - COVID-19; J12.82 - Pneumonia due to coronavirus disease 2019 Status: Acute Assessment and Plan: Continue droplet isolation. (3) Acute renal failure: Qualifiers: Acute renal failure type: unspecified Qualified Code(s): N17.9 - Acute kidney failure, unspecified Code(s): N17.9 - Acute kidney failure, unspecified Status: Acute Assessment and Plan: Resolved after hydration (4) Transaminitis: Code(s): R74.01 - Elevation of levels of liver transaminase levels Status: Acute Assessment and Plan: Likely secondary to acute COVID-19 infection. AST down to 37, ALT WNL (5) GERD (gastroesophageal reflux disease): Qualifiers: Esophagitis presence: esophagitis presence not specified Qualified Code(s): K21.9 - Gastro-esophageal reflux disease without esophagitis Code(s): K21.9 - Gastro-esophageal reflux disease without esophagitis Status: Chronic Assessment and Plan: Continue PPI therapy. (6) HTN (hypertension): Qualifiers: Hypertension type: unspecified Qualified Code(s): I10 - Essential (primary) hypertension Code(s): I10 - Essential (primary) hypertension Status: Chronic Assessment and Plan: F/u as outpatient DS: Summary Hospital Course Reason for hospitalization: dyspnea Hospital Course: RT admitted with dyspnea, cough, ABNL chest imaging c/w COVID-19, confirmed by rt-PCR for SARS-CoV-2. Received 5 days of remdisivir as well as dexamethasone. Gradually improved oxygenation such that she was WNL on R/a by day of discharge. She was tolerating diet and ambulating independently. Status at Discharge Functional status at discharge: independent ambulation Overall status at discharge: patient is progressing back to baseline Time Spent with Patient Time attestation: Total time spent providing and/or coordinating discharge services: 36 min Time spent: Greater than 30 minutes Exam Narrative: Exam Narrative: HEENT: EOMI, PERRL, sclerae nonicteric, pharyngeal mucosa pink and intact NECK: No JVD CHEST: Slightly coarse BS at bases. Normal effort. HEART: NL S1/S2, regular, no murmur ABDOMEN: BS+, soft, nontender, no mass, no bruits EXTREMITIES: No cyanosis, edema, or clubbing NEUROLOGIC: CN intact and symmetric to inspection. MUSCULOSKELETAL: Tone and strength symmetric. PSYCH: Alert. Oriented to person, place, and time. DS: Data Data Completed and Pending Labs on day of discharge: Labs from last 24 hours 08/22/20 08/22/20 08/22/20 06:04 06:04 06:04 WBC 7.9 RBC 4.29 Hgb 12.3 Hct 36.9 L MCV 86.0 MCH 28.7 MCHC 33.3 RDW 13.9 Plt Count 215 MPV 11.1 H Immature Gran % (Auto) Not Reportable Neut % (Auto) Not Reportable Lymph % (Auto) Not Reportable [place] % (Auto) Not Reportable Eos % (Auto) Not Reportable Baso % (Auto) Not Reportable Lymph # (Auto) Not Reportable [place] # (Auto) Not Reportable Eos # (Auto) Not Reportable Baso # (Auto) Not Reportable Abs Immat Gran (auto) Not Reportable Absolute Neuts (auto) Not Reportable Absolute Nucleated RBC Not Reportable Total Counted 100 Neutrophils % (Manual) 76 H Lymphocytes % (Manual) 16.0 L Monocytes % (Manual) 8 Nucleated RBC % Not Reportable Abs Lymphs (Manual) 1.26 Abs Monocytes (Manual) 0.63 Platelet Estimate Adequate Crenated Cell 1+ Sodium 139 Potassium 4.3 Chloride 107 Carbon Dioxide 27 Anion Gap 5
[2020-08-22 16:00] VITALS: BP 151/78; PULSE 91; RESP 16; TEMP 36.6; O2SAT 96
[2020-08-22] MEDS: REMDESIVIR 100 MG/NS 250 ML 100 MG/250 ML BAG 250 MG IVPB (18:12)
== END 2020-08-22 19:30 | disposition home or self-care (01) | DRG 177 ==
LOC: ANHED 23:04 → ANH3MEDSUR 08-19 02:56
PROVIDERS: Nurse Practitioner; Admitting Provider Family Medicine; Emergency Provider Emergency Medicine; PCP Internal Medicine; Visit Provider Internal Medicine
DX: U07.1 COVID-19 (principal); J12.82 Pneumonia due to coronavirus disease 2019; J96.00 Acute respiratory failure, unspecified whether with hypoxia or hypercapnia; N17.9 Acute kidney failure, unspecified; I10 Essential (primary) hypertension; K21.9 Gastro-esophageal reflux disease without esophagitis
CPT/HCPCS: 36415; 36600; 71045; 71275; 80048; 80053; 82375; 82728; 82805; 83050; 83605; 83615; 83735; 84460; 84484; 85025; 85380; 85610; 85730; 86140; 94640; 94667; 96374; 99291; A9270; J1100; J1650; J7030; Q9967

== ENCOUNTER 2020-12-14 10:19 | Outpatient (CLI) | payer OTHER, SELFPAY ==
--- NOTE | ~2020-12-14 | MM_ITS ---
EXAMINATION: MM screening [facility] BI w gilma HISTORY: Screening TECHNIQUE: Craniocaudal and mediolateral oblique 3-D tomosynthesis images were obtained and synthetic 2-D images were generated. CAD analysis was submitted and interpreted. COMPARISON: Comparison to multiple prior studies sequentially, with oldest reviewed study dated 07/14. BREAST PARENCHYMAL COMPOSITION: There are scattered areas of fibroglandular density. FINDINGS: There is no evidence of suspicious mass, calcification, or architectural distortion to sugg est malignancy in either breast. There has been no suspicious interval change. IMPRESSION: 1. No mammographic evidence of malignancy. 2. Recommend routine screening mammography in one year. BI-RADS Category 1: Negative Reviewed, dictated and finalized at location A.
== END 2020-12-14 10:20 | disposition home or self-care (01) ==
LOC: ANHIMG 10:23
PROVIDERS: PCP Internal Medicine; Visit Provider Obstetrics & Gynecology
DX: Z12.31 Encounter for screening mammogram for malignant neoplasm of breast (principal)
CPT/HCPCS: 77063; 77067

== ENCOUNTER 2021-07-08 11:27 | Outpatient (CLI) | payer OTHER, SELFPAY ==
--- NOTE | 2021-07-08 14:45 | WPDPFTINT ---
PFT Procedure Performed PFT Procedure Performed Spirometry with Pre/Post Bronchodilator Plethysmography (Lung Vol) Diffusing Cap (DLCO) Flow Vol Loop PFT Interpretation This is a pulmonary function test with pre and post-bronchodilator spirometry, plethysmography and diffusing capacity. The test was performed and results interpreted in accordance with the 2019 and 2005 ATS/ERS Task Force guidelines respectively using the Global Lung Function Initiative-2012 reference equations. Patient demonstrated good effort and cooperation. Reproducibility criteria were met. The quality of the pre bronchodilator spirometry maneuver was Grade A and post bronchodilator spirometry maneuver was Grade A. Findings: Spirometry: The contour the inspiratory and expiratory flow tracing are normal. The pre bronchodilator FVC is 2.91 L, 94% predicted. The pre bronchodilator FEV1 is 2.06 L, 85% predicted. The FEV1: FVC ratio is 71%. The post bronchodilator FVC is 2.74 L, representing a 6% decrease. The post bronchodilator FEV1 is 1.98 L, representing a 4% decrease. The FEV1: FVC ratio 72%. Plethysmography: The total lung capacity is 4.50, 89% predicted. Functional residual capacity is 2.17 L, 75% predicted. The residual volume is 1.58 L, 77% predicted. Diffusing capacity: The absolute diffusion capacity is 20.2, 95% predicted. The diffusing capacity corrected for alveolar volume is 4.72, 107% predicted. Impression: The spirometry is normal without evidence of an obstructive abnormality. There is no significant improvement after inhaling a single dose of albuterol. The lung volumes are normal. The diffusing capacity is normal. There are no prior studies for comparison
== END 2021-07-08 11:28 | disposition home or self-care (01) ==
LOC: ANHPFT 11:32
PROVIDERS: PCP Internal Medicine; Visit Provider Student in an Organized Health Care Education/Training Program
DX: R06.09 Other forms of dyspnea (principal)
CPT/HCPCS: 94060; 94726; 94729

== ENCOUNTER 2021-08-11 14:21 | Outpatient (CLI) | payer OTHER, SELFPAY ==
--- NOTE | ~2021-08-11 | CT_ITS ---
EXAMINATION: CT diagnostic chest wo con DATE: 08/11/2021 14:41 INDICATION: Shortness of breath TECHNIQUE: Computed tomography (CT) of the chest was performed without intravenous contrast. The dose -length product (DLP) was 535.33 mGy-cm. Automated exposure control and iterative reconstruction tech nique were employed. COMPARISON: 08/18/2020 FINDINGS: The lungs are free of acute opacities. No definite sequela of prior COVID 19 pneumonia are identified. There is no pleural effusion or pneumothorax. No pathologically enlarged thoracic lymph n odes are identified. The heart size is normal. There is moderate thoracic spondylosis. IMPRESSION: 1. No acute cardiopulmonary abnormality. Reviewed, dictated and finalized at location F. NAUTICS TEACHER
== END 2021-08-11 14:22 | disposition home or self-care (01) ==
LOC: ANHIMG 14:23
PROVIDERS: PCP Internal Medicine; Visit Provider Internal Medicine
DX: R06.09 Other forms of dyspnea (principal); U09.9 Post COVID-19 condition, unspecified
CPT/HCPCS: 71250

== ENCOUNTER 2021-12-05 20:48 | Emergency (ER) | payer OTHER, SELFPAY ==
--- NOTE | ~2021-12-05 | XR_ITS ---
EXAMINATION: XR ankle LT min 3V DATE: 12/05/2021 22:09 INDICATION: Left ankle pain, initial encounter TECHNIQUE: Anteroposterior, lateral, mortise, and additional oblique view of the ankle were obtained. COMPARISON: 07/29/2007 FINDINGS: There is an acute, traumatic, closed, oblique fracture of the distal fibula continuing to t he level of the tibial plafond. Bone alignment is essentially normal. No additional fracture is ident ified. Soft tissue swelling is seen surrounding the ankle. Posterior and plantar calcaneal enthesophy ryann are noted. IMPRESSION: 1. Oblique fracture of the distal fibula continuing to the level of the tibial plafond. Reviewed, dictated and finalized at location F.
--- NOTE | ~2021-12-05 | XR_ITS ---
EXAMINATION: XR humerus RT INDICATION: Right arm pain TECHNIQUE: Two views of the right humerus are obtained on three radiographs. COMPARISON: None available FINDINGS: Bone alignment is normal. There is a questionable subtle transverse lucency in the humeral head. There is moderate osteoarthritis of the glenohumeral and acromioclavicular joints. The soft tis sues are unremarkable. IMPRESSION: 1. Possible nondisplaced fracture of the humeral head. Dedicated shoulder radiographs are recommended . Reviewed, dictated and finalized at location F. IMPRESSION: 1. Possible nondisplaced fracture of the humeral head. Dedicated shoulder radio graphs are recommended.
--- NOTE | ~2021-12-05 | XR_ITS ---
EXAMINATION: XR shoulder RT min 2V DATE: 12/06/2021 00:22 INDICATION: Right shoulder injury. TECHNIQUE: 4 views of right shoulder were obtained. COMPARISON: Right humerus radiographs 12/05/2021 FINDINGS: Bone alignment is normal. No fracture. There is mild osteoarthritis of glenohumeral joint a nd severe osteoarthritis of acromioclavicular joint. IMPRESSION: 1. Polyarticular osteoarthritis. Reviewed, dictated and finalized at location A.
[2021-12-05 20:58] VITALS: BP 156/68; PULSE 92; RESP 14; TEMP 36.3; O2SAT 99
[2021-12-05 21:32] VITALS: RESP 14; O2SAT 99
--- NOTE | 2021-12-05 21:54 | ED.FALL ---
HPI - Fall General Chief Complaint: Fall Stated Complaint: Left ankle pain, fall Time Seen by Provider: 12/05/21 21:48 Source: patient Mode of arrival: ambulatory Limitations: no limitations History of Present Illness HPI Narrative: Pt tripped and fell down about twelve stairs. No LOC or neck pain. Pt complains of left ankle pain and right arm pain. complaint: fall Fall from: down stairs (#) Place fall occurred: home Loss of consciousness: none Symptoms prior to fall: none Context: tripped/slipped Location of injury - extremities: Left: ankle and Right: shoulder and arm Related Data Home Medications Medication Instructions Recorded Confirmed cholecalciferol (vitamin D3) 125 mcg PO DAILY 08/19/20 08/19/20 [Vitamin D3] cyanocobalamin (vitamin B-12) 1,000 mcg PO DAILY 08/19/20 08/19/20 zinc 50 mg PO DAILY 08/19/20 08/19/20 Allergies Allergy/AdvReac Type Severity Reaction Status Date / Time metoclopramide [From Reglan] AdvReac Agitated Verified 12/05/21 21:03 morphine AdvReac Agitated Verified 12/05/21 21:03 Review of Systems Review of Systems: All systems reviewed & are unremarkable except as noted in HPI and below PMFSH Past Medical History Medical History (Updated 12/06/21 @ 01:02 by Nesha Matias III, DO) Arthritis GERD (gastroesophageal reflux disease) Hiatal hernia HTN (hypertension) IBS (irritable bowel syndrome) Mitral valve prolapse Seasonal allergies Surgical History Surgical History H/O dilation and curettage H/O tubal ligation History of History of cholecystectomy History of endometrial ablation History of tonsillectomy Family History Family History (Updated 08/19/20 @ 02:39 by Lisbeth Godoy RN) Other Unknown family medical history Social History Social History Smoking status: Former smoker Drinks per week: 0 Substance use: never Gender identity (if verbalized by the patient): Female Sexual Orientation (if Verbalized by the Patient): Straight or Heterosexual Spiritual care concerns: No Exam Const: General: no acute distress Orientation/consciousness: patient oriented x3 HENMT: Head: normal to inspection Eyes: Pupils: Equal, round and reactive pupils present Neck: Neck: normal visual inspection Resp: Effort & Inspection: normal respiratory effort Auscultation: clear to auscultation bilaterally Cardio: Rate: regular rate Rhythm: regular rhythm GI: Auscultation: normal bowel sounds Back/Spine/Pelvis: Back: no CVA tenderness Skin: General skin exam: normal color Neuro: General: patient oriented x3 and moves all extremities Extrem: Other: tender left lateral and medial malleolus with swelling no gross instability tender right trapezius and arm and shoulder but full ROM and no swelling Psych: Appearance: grossly normal Mental Status: mental status grossly normal Affect: normal affect Thought content: Yes Normal thought content present Course Vital Signs Vital signs: Vital Signs Temperature 97.4 F L 12/05/21 20:58 Pulse Rate 92 12/05/21 20:58 Respiratory Rate 14 12/05/21 20:58 Blood Pressure 156/68 H 12/05/21 20:58 Pulse Oximetry 99 12/05/21 20:58 Temperature 97.4 F L 12/05/21 20:58 Pulse Rate 88 12/06/21 01:14 Respiratory Rate 17 12/06/21 01:14 Blood Pressure 123/87 12/06/21 01:14 Pulse Oximetry 100 12/06/21 01:14 Discharge Plan Discharge Clinical Impression: Fracture of distal end of fibula Qualifiers: Encounter type: initial encounter Fracture type: closed Fracture morphology: unspecified fracture morphology Laterality: left Qualified Code(s): S82.832A - Other fracture of upper and lower end of left fibula, initial encounter for closed fracture Patient Disposition: Home, Self-Care Condition: Stable Instructions: Antibiotic Form, Ankle Fracture (DC) Pr
[2021-12-05] MEDS: KETOROLAC 30 MG/ML VIAL (*BKC) IM (22:13)
[2021-12-05 23:17] VITALS: BP 123/88; PULSE 100; RESP 14; O2SAT 97
[2021-12-06] MEDS: HYDROcodone/acetaminophen (*CRX) 5-325 MG TABLET 1 TAB PO (01:03)
[2021-12-06 01:14] VITALS: BP 123/87; PULSE 88; RESP 17; O2SAT 100
== END 2021-12-06 01:20 | disposition home or self-care (01) ==
PROVIDERS: Emergency Provider Emergency Medicine; PCP Internal Medicine
DX: S82.832A Other fracture of upper and lower end of left fibula, initial encounter for closed fracture (principal); I10 Essential (primary) hypertension; I34.1 Nonrheumatic mitral (valve) prolapse; M19.90 Unspecified osteoarthritis, unspecified site; K21.9 Gastro-esophageal reflux disease without esophagitis; K58.9 Irritable bowel syndrome, unspecified; Z87.891 Personal history of nicotine dependence; M19.011 Primary osteoarthritis, right shoulder; W10.9XXA Fall (on) (from) unspecified stairs and steps, initial encounter
CPT/HCPCS: 29515; 73030; 73060; 73610; 99284; A4565; A9270; J1885

== ENCOUNTER → 2022-07-04 09:54 | Outpatient (CLI) | payer OTHER, SELFPAY ==
--- NOTE | ~2022-07-04 | MM_ITS ---
EXAMINATION: MM screening [facility] w gilma HISTORY: Screening mammogram TECHNIQUE: Craniocaudal and mediolateral oblique 3-D tomosynthesis images were obtained and synthetic 2-D images were generated. CAD analysis was submitted and interpreted. COMPARISON: No prior mammogram is available for comparison at this institution. BREAST PARENCHYMAL COMPOSITION: There are scattered areas of fibroglandular density. FINDINGS: There is no evidence of suspicious mass, calcification, or architectural distortion to sugg est malignancy in either breast. There has been no suspicious interval change. IMPRESSION: 1. No mammographic evidence of malignancy. 2. Recommend routine screening mammography in one year. BI-RADS Category 1: Negative Reviewed, dictated and finalized at location A. 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
== END ==
PROVIDERS: PCP Internal Medicine; Visit Provider Obstetrics & Gynecology
DX: Z12.31 Encounter for screening mammogram for malignant neoplasm of breast (principal)
CPT/HCPCS: 77063; 77067

== ENCOUNTER → 2023-08-21 15:40 | Outpatient (CLI) | payer MEDICARE, SELFPAY ==
--- NOTE | ~2023-08-21 | MM_ITS ---
EXAMINATION: MM screening [facility] w gil[facility] HISTORY: Screening mammogram TECHNIQUE: Craniocaudal and mediolateral oblique 3-D tomosynthesis images were obtained and synthetic 2-D images were generated. CAD analysis was submitted and interpreted. COMPARISON: 07/04/2022, 12/14/2020, 07/03/2019 BREAST PARENCHYMAL COMPOSITION:Not Dense. The breasts are almost entirely fatty FINDINGS: No suspicious mass, calcification, or architectural distortion are identified in either shaheen ast to suggest malignancy. There has been no suspicious interval change. IMPRESSION: No mammographic evidence of malignancy. Recommend routine screening mammography in one year. BI-RADS Category 1: Negative Reviewed, dictated and finalized at location . SHOP SUPERVISOR
== END ==
PROVIDERS: PCP Internal Medicine; Visit Provider Obstetrics & Gynecology
DX: Z12.31 Encounter for screening mammogram for malignant neoplasm of breast (principal)
CPT/HCPCS: 77063; 77067

== ENCOUNTER 2024-08-26 09:48 | Outpatient (CLI) | payer MEDICARE, SELFPAY ==
--- NOTE | ~2024-08-26 | MM_ITS ---
EXAMINATION: MM screening [facility] w gilma HISTORY: Screening mammogram TECHNIQUE: Craniocaudal and mediolateral oblique 3-D tomosynthesis images were obtained and synthetic 2-D images were generated. CAD analysis was submitted and interpreted. COMPARISON: 08/21/2023, 07/04/2022, 12/14/2020 BREAST PARENCHYMAL COMPOSITION:Not Dense. The breasts are almost entirely fatty FINDINGS: No suspicious mass, calcification, or architectural distortion are identified in either shaheen ast to suggest malignancy. There has been no suspicious interval change. IMPRESSION: No mammographic evidence of malignancy. Recommend routine screening mammography in one year. BI-RADS Category 1: Negative Reviewed, dictated and finalized at location . AMATIC SPECIALIST
== END 2024-08-26 09:49 | disposition home or self-care (01) ==
LOC: MICIMG 09:50
PROVIDERS: PCP Obstetrics & Gynecology; Visit Provider Internal Medicine
DX: Z12.31 Encounter for screening mammogram for malignant neoplasm of breast (principal)
CPT/HCPCS: 77063; 77067